=== PATIENT | female | born 1935 | race Caucasian/White ===

== ENCOUNTER 2019-06-13 09:31 | Day surgery (SDC) | payer MEDICARE, OTHER, SELFPAY ==
[2019-06-13 09:53] VITALS: BP 131/83; PULSE 61; RESP 15; TEMP 37.1; O2SAT 98; BMI 20.7
[2019-06-13] MEDS: PROPARACAINE 0.5% OPHTH SOL 2 DROPS EYE-OP (10:10)
[2019-06-13] MEDS: CATARACT EYE COMPOUND (10 DROPS/SYRINGE) 3 DROPS EYE-OP (10:17)
--- NOTE | 2019-06-13 10:20 | PM.PREOP ---
Pre-operative Note Interval Note History & Physical reviewed/Exam performed by Physician: Yes Changes to H&P: No
[2019-06-13] MEDS: MOXIFLOXACIN INJ 5 MG/ML VIAL EYE-OP (10:39)
[2019-06-13] MEDS: LIDOCAINE 2% INJ SDV 2 ML INJ (10:39)
[2019-06-13] MEDS: PHENYLEPHRINE/LIDOCAINE VIAL (OR) 0.2 ML EYE-OP (10:40)
[2019-06-13] MEDS: CHONDROIDTIN/SOD HYALURONATE 1.05 ML SYRINGE INTRAOCULA (10:40)
[2019-06-13] MEDS: BALANCED SALT IRRIG SOLN NO.2 15 ML 5 ML IRR (10:41)
[2019-06-13] MEDS: TETRACAINE 0.5% OPHTH DROPS 4 ML 2 DROPS EYE-OP (10:41)
[2019-06-13] MEDS: BALANCED SALT IRRIG SOLN NO.2 500 ML, EPINEPHrine 1 MG IRR (10:44)
--- NOTE | 2019-06-13 11:10 | PM.OP.1 ---
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 The correct patient, surgical site and lens were confirmed. 0.5 % tetracaine drops were placed in the right eye and the eye was marked with a corneal reference marker. The patient was prepped and draped in the typical sterile manner. A lid speculum was placed in the eye. 2% lidocaine was placed on the eye. A paracentesis port was created with a side-port blade. 0.1 mL of 1% preservative free lidocaine with phenylephrine was injected into the anterior chamber. Viscoelastic was injected into the anterior chamber. A 2.6mm keratome was used to create a clear corneal temporal incision. Cystotome and Utrata forceps were used to create a continuous curvilinear capsulorrhexis. Balanced salt solution was used to hydrodissect the nucleus. Phacoemulsification was used to remove the lens. The capsular bag was inflated with viscoelastic and the cornea was marked at 34 degrees. A Donovan [id number] +20.0D lens was inserted into the capsule and rotated to 34 degrees. Viscoelastic was removed and the wound hydrated. The lens was confirmed to be at 34 degrees. The wound was found to be leak free and the eye was assessed to be at normal physiologic pressure. 0.1mL Vigamox was injected into the anterior chamber. The lid speculum was removed and the patient left the operating room in excellent condition. Complications: none Post-operative Condition: stable Disposition: same day surgery
[2019-06-13 11:20] VITALS: BP 150/81; PULSE 55; RESP 14; TEMP 36.3; O2SAT 98
[2019-06-13 11:47] VITALS: BP 124/74; PULSE 62; RESP 15; TEMP 36.8; O2SAT 96
== END 2019-06-13 11:51 | disposition home or self-care (01) ==
PROVIDERS: PCP Internal Medicine; Visit Provider Ophthalmology
PROC: (CPT 66984; principal; 2019-06-13 10:30)
DX: H25.811 Combined forms of age-related cataract, right eye (principal)
CPT/HCPCS: 66984; J0171; J2250; J3010; V2787

== ENCOUNTER 2019-06-27 08:51 | Day surgery (SDC) | payer MEDICARE, OTHER, SELFPAY ==
[2019-06-27] MEDS: PROPARACAINE 0.5% OPHTH SOL 2 DROPS EYE-OP (09:30)
[2019-06-27 09:38] VITALS: BP 150/79; PULSE 54; RESP 15; TEMP 37.1; O2SAT 98; BMI 20.7
[2019-06-27] MEDS: CATARACT EYE COMPOUND (10 DROPS/SYRINGE) 3 DROPS EYE-OP (09:46)
--- NOTE | 2019-06-27 10:15 | PM.PREOP ---
Pre-operative Note Interval Note History & Physical reviewed/Exam performed by Physician: Yes Changes to H&P: No
[2019-06-27] MEDS: BALANCED SALT IRRIG SOLN NO.2 15 ML 5 ML IRR (10:37)
[2019-06-27] MEDS: LIDOCAINE 2% INJ SDV 2 ML INJ (10:38)
[2019-06-27] MEDS: MOXIFLOXACIN INJ 5 MG/ML VIAL EYE-OP (10:38)
[2019-06-27] MEDS: PHENYLEPHRINE/LIDOCAINE VIAL (OR) 0.2 ML EYE-OP (10:38)
[2019-06-27] MEDS: CHONDROIDTIN/SOD HYALURONATE 1.05 ML SYRINGE INTRAOCULA (10:38)
[2019-06-27] MEDS: BALANCED SALT IRRIG SOLN NO.2 500 ML, EPINEPHrine 1 MG IRR (10:39)
[2019-06-27] MEDS: TETRACAINE 0.5% OPHTH DROPS 4 ML 2 DROPS EYE-OP (10:39)
--- NOTE | 2019-06-27 11:08 | PM.OP.1 ---
Procedure & Clinicians Procedure: Cataract extraction with intraocular lens implant, left Same procedure as scheduled: Yes Indications: Combined forms age related cataract, left Surgeon: Unruly Reeves Click Yes if Unassisted: Yes Anesthesia Type: MAC +/- Operative Notes Procedure in detail: The patient was brought to the operating suite. The correct patient, surgical site and lens were confirmed. 0.5 % tetracaine drops were placed in the left eye and the eye was marked with a corneal reference marker. The patient was prepped and draped in the typical sterile manner. A lid speculum was placed in the eye. 2% lidocaine was placed on the eye. A paracentesis port was created with a side-port blade. 0.1 mL of 1% preservative free lidocaine with phenylephrine was injected into the anterior chamber. Viscoelastic was injected into the anterior chamber. A 2.6mm keratome was used to create a clear corneal temporal incision. Cystotome and Utrata forceps were used to create a continuous curvilinear capsulorrhexis. Balanced salt solution was used to hydrodissect the nucleus. Phacoemulsification was used to remove the lens. The capsular bag was inflated with viscoelastic. A Donovan [id number] +19.5D lens was inserted into the capsule and rotated to 142 degrees. Viscoelastic was removed and the wound hydrated. The lens position was confirmed at 142 degrees. The wound was found to be leak free and the eye was assessed to be at normal physiologic pressure. 0.1mL Vigamox was injected into the anterior chamber. The lid speculum was removed and the patient left the operating room in excellent condition. Complications: none Post-operative Condition: stable Disposition: same day surgery
[2019-06-27 11:22] VITALS: BP 147/83; PULSE 54; RESP 16; TEMP 36.6; O2SAT 98
--- NOTE | 2019-06-27 11:26 | SUR.PHASEII ---
using bathroom before d/c home.
== END 2019-06-27 11:27 ==
LOC: OR 08:53
PROVIDERS: PCP Internal Medicine; Visit Provider Ophthalmology
PROC: (CPT 66984; principal; 2019-06-27 10:30)
DX: H25.812 Combined forms of age-related cataract, left eye (principal)
CPT/HCPCS: 66984; J0171; J2250; V2787

== ENCOUNTER → 2020-07-15 10:55 | Outpatient (CLI) | payer MEDICARE, OTHER, SELFPAY ==
--- NOTE | 2020-07-15 | DI.MRI.S_ITS ---
PROCEDURE: MR THORACIC SPINE WO CON INDICATIONS: Orthostatic hypotension TECHNIQUE: Noncontrast sagittal T1 spine echo and T2 fast spin echo, sagittal STIR, axial T1 and T2 fast spin echo through the thoracic spine. COMPARISON: [facility], , MR CERVICAL SPINE WO CON, 07/15/2020, 11:18. FINDINGS: Image quality: Excellent. Alignment and Curvature: There is normal bony alignment. Bone Marrow: Marrow is generally of normal signal but there is a rounded hemangioma within the marrow space of the T9 vertebral body. Immediately above at the T8 vertebral body there is chronic appearing compression fracture with both anterior and posterior height reduction with anterior wedging to a greater degree. No retropulsion of bone fragments into the spinal canal are found. No acute vertebral body compression fractures. Spinal Cord: Visualized spinal cord is normal in size and signal. Paraspinous Soft Tissues: No paravertebral masses. Miscellaneous: On axial images, central canal and foramina appear widely patent at all scanned levels. IMPRESSION: Chronic appearing T8 moderate anterior wedge compression fracture without retropulsion of bone fragments into the spinal canal. T9 vertebral body hemangioma incidentally noted. No disc bulge or herniation is found. No acute trauma seen. Source of orthostatic hypotension is not identified. Dictated by: Cem Benavides M.D. on 07/15/2020 at 13:10 Approved by: Cem Benavides M.D. on 07/15/2020 at 13:14
--- NOTE | 2020-07-15 | DI.MRI.S_ITS ---
PROCEDURE: MR CERVICAL SPINE WO CON INDICATIONS: Orthostatic hypotension TECHNIQUE: Noncontrast sagittal T1 spin echo and T2 fast spin echo, sagittal STIR, foraminal oblique sagittal T2 fast spin echo, and axial gradient echo or T2 fast spin echo through the cervical spine. COMPARISON: None. FINDINGS: Image quality: Excellent. Alignment and Curvature: Trace retrolisthesis of C3 on C4 and grade 1 anterolisthesis of C4 on C5. Multilevel degenerative endplate sclerosis and spurring. Diffuse facet arthropathy. Bone Marrow: No fracture Spinal Cord: Visualized spinal cord has normal size and signal. No cerebellar tonsillar herniation. Paraspinous Soft Tissues: No paravertebral masses. Prevertebral soft tissues are normal in thickness. C2-C3: Normal appearance. C3-C4: Mild canal narrowing. Moderate to severe right foraminal stenosis. Severe left foraminal stenosis . Nerve root compression on both sides C4-C5: Mild canal narrowing. Mild bilateral foraminal stenosis C5-C6: Mild canal narrowing. Moderate left foraminal narrowing. Moderate to severe right foraminal stenosis. C6-C7: No canal stenosis. Mild to moderate bilateral foraminal narrowing. C7-T1: No canal narrowing. No foraminal stenosis IMPRESSION: No high-grade canal narrowing. Diffuse bilateral foraminal stenosis as detailed above by spinal level. Multilevel spondylolisthesis as above. Dictated by: Zain Toure M.D. on 07/15/2020 at 15:11 Approved by: Zain Toure M.D. on 07/15/2020 at 15:31
--- NOTE | 2020-07-15 | DI.MRI.S_ITS ---
PROCEDURE: MR LUMBAR SPINE WO CON INDICATIONS: Orthostatic hypotension TECHNIQUE: Noncontrast sagittal T1 spin echo and T2 fast echo, sagittal STIR, axial T1 and T2 fast spin echo through the lumbar spine. In cases with scoliosis, additional coronal T2 fast spin echo may be performed. COMPARISON: None. FINDINGS: Image quality: Excellent. Alignment and Curvature: Grade 1 anterolisthesis of L5 on S1. Trace retrolisthesis of L1 on L2. Bone Marrow: Marrow is of normal overall signal. No acute vertebral body compression fractures. Spinal Cord: Conus medullaris terminates at the L1 level. Visualized cord demonstrates normal signal and size. Paraspinous Soft Tissues: No paravertebral masses. L1-L2: Minimal canal narrowing. Mild left and moderate right foraminal stenosis L2-L3: No canal stenosis. Lateral recesses appear grossly patent. No foraminal stenosis L3-L4: Moderate canal narrowing. Partial effacement of both lateral recesses with bilaterally symmetric appearance. No right foraminal stenosis. Mild to moderate left foraminal narrowing with possible nerve root compression L4-L5: Mild canal narrowing. Partial effacement of both lateral recesses with asymmetric appearance, right greater than left. Mild left foraminal narrowing. Moderate to severe right foraminal stenosis with borderline nerve root compression L5-S1: Mild canal narrowing. Lateral recesses appear grossly patent. Mild left and no right foraminal stenoses IMPRESSION: Lower lumbar spondylosis and facet arthropathy, with moderate canal narrowing at L3-L4. Multilevel spondylolisthesis as above. Dictated by: Zain Toure M.D. on 07/15/2020 at 15:04 Approved by: Zain Toure M.D. on 07/15/2020 at 15:11
== END ==
PROVIDERS: PCP Psychiatry & Neurology Neurology; Referring Provider Psychiatry & Neurology Neurology; Visit Provider Psychiatry & Neurology Neurology
DX: I95.1 Orthostatic hypotension (principal); R26.9 Unspecified abnormalities of gait and mobility; M54.5 Low back pain; M48.02 Spinal stenosis, cervical region; M43.12 Spondylolisthesis, cervical region; M47.816 Spondylosis without myelopathy or radiculopathy, lumbar region; M43.17 Spondylolisthesis, lumbosacral region; M48.54XA Collapsed vertebra, not elsewhere classified, thoracic region, initial encounter for fracture; D18.09 Hemangioma of other sites
CPT/HCPCS: 72141; 72146; 72148

== ENCOUNTER → 2021-11-05 13:08 | Outpatient (CLI) | payer MEDICARE, OTHER, SELFPAY ==
[2021-11-05 19:26] LABS: Vitamin D 25 Hydroxy (D3) 24.9 ng/mL (30.0-100.0)
== END ==
PROVIDERS: PCP Psychiatry & Neurology Neurology; Visit Provider Internal Medicine Cardiovascular Disease
DX: M81.0 Age-related osteoporosis without current pathological fracture (principal)
CPT/HCPCS: 82306